=== PATIENT | male | born 1970 | race Two or more races ===

== ENCOUNTER 2018-11-10 05:22 | Emergency (ER) | payer MEDICAID, OTHER, SELFPAY ==
[~2018-11-10] VITALS: Ht 175.3 cm; Wt 100.0 kg
[2018-11-10] MEDS ORDERED: ATROPINE SYRINGE 0.1 MG/ML, 10ML ONE (05:46)
--- NOTE | 2018-11-10 05:58 | NUR ---
[facility]. PT HAS A LAC TO HEAD. STERI STRIPS APPLIED BY [facility] STAFF. PT REPORTS HE WAS FEELING DIZZY THIS MORNING. HR FOUND TO BE IN THE 30-40S FOR EMS. ATROPINE GIVEN. HR NOW IN THE 60'S. DR RUSSO AWARE. WILL CONTINUE TO MONITOR.
[2018-11-10] MEDS ORDERED: ATROPINE SYRINGE 0.1 MG/ML, 10ML IVPush ONE (06:00)
--- NOTE | 2018-11-10 06:19 | NUR ---
ORANGE JUICE GIVEN PER DR RUSSO
[2018-11-10] MEDS ORDERED: GABA300C10 PO (06:28)
[2018-11-10 06:35] LABS: BASOPHILS # (AUTO) 0.02 x10^3/uL (0-0.1); BASOPHILS % (AUTO) 0 % (0-1); EOSINOPHILS # (AUTO) 0.16 x10^3/uL (0-0.4); EOSINOPHILS % (AUTO) 3 % (1-7); LYMPHOCYTES # (AUTO) 1.92 x10^3/uL (1-3.4); LYMPHOCYTES % (AUTO) 29 % (22-44); MD NO; MEAN CORPUSCULAR VOLUME 88.2 fL (81-97); MEAN PLATELET VOLUME 8.4 fL (7.4-10.4); MONOCYTES # (AUTO) 0.68 x10^3/uL (0.2-0.8); MONOCYTES % (AUTO) 10 % (2-9); NEUTROPHILS # (AUTO) 3.75 x10^3/uL (1.8-6.8); NEUTROPHILS % (AUTO) 57 % (42-75); PLATELET COUNT 196 x10^3/uL (130-400); RED BLOOD COUNT 4.95 x10^6/uL (4.38-5.82); RED CELL DISTRIBUTION WIDTH 12.8 % (9.4-14.8)
[2018-11-10] MEDS ORDERED: OLAN15TA9 PO (06:36)
[2018-11-10 06:45] LABS: ALBUMIN 3.5 g/dL (3.4-5.0); ANION GAP 4 mmol/L (5-15); CALCIUM 8.9 mg/dL (8.5-10.1); CHLORIDE 109 mmol/L (98-107); CREATININE 0.92 mg/dL (0.7-1.3)
[2018-11-10 06:48] LABS: TROPONIN I < 0.015 ng/mL (0.000-0.045)
--- NOTE | 2018-11-10 06:56 | NUR ---
REPORT GIVEN TO DUSTY ESTRELLA
[2018-11-10] MEDS ORDERED: L.E.T SOLUTION TP ONE ×2 (07:00)
--- NOTE | 2018-11-10 07:00 | NUR ---
LET APPLIED TO PATIENT FOREHEAD. OFFICERS AT BS.
[2018-11-10 08:09] VITALS: BP 96/55
--- NOTE | 2018-11-10 08:12 | NUR ---
MD AND RN INSTRUCTED POLICE OFFICERS AT ([facility] [employer]) ON DISCHARGE INSTRUCTIONS. PATIENT GIVEN MEAL TRAY AND IS EATING PRIOR TO LEAVING. PATIENT COOPERATIVE AND POLITE AT THIS TIME.
--- NOTE | 2018-11-10 08:58 | NUR ---
CRISTI MONTANO CALLED AND REPORT GIVEN
== END 2018-11-10 08:13 | disposition home or self-care (01) ==
LOC: ED 05:39
DX: S01.81XA Laceration without foreign body of other part of head, initial encounter (principal); X58.XXXA Exposure to other specified factors, initial encounter; Y93.89 Activity, other specified; Y92.89 Other specified places as the place of occurrence of the external cause; Y99.8 Other external cause status
CPT/HCPCS: 12011; 71045; 80048; 82040; 82962; 83880; 84484; 85025; 93005; 96374; 99284; J0461